=== PATIENT | female | born 1985 ===

== ENCOUNTER 2016-09-19 13:44 | Emergency (ER) | payer OTHER ==
[2016-09-19 13:44] VITALS: BMI 26.0
[2016-09-19 13:51] VITALS: BP 134/80; PULSE 60; RESP 18; TEMP 97; O2SAT 90
[2016-09-19 15:30] LABS: BASO # 0.1 K/uL (0.0-0.2); EOS # 0.1 K/uL (0.0-0.7); EOS % 1.2 % (0.0-4.0); LYMPH # 2.5 K/uL (1.0-4.3); LYMPH % 33.6 % (20.0-40.0); MEAN CELL VOLUME 91.4 fl (81.0-99.0); MEAN CORPUSCULAR HEMOGLOBIN 30.6 pg (27.0-31.0); MEAN CORPUSCULAR HGB CONC 33.5 g/dL (33.0-37.0); MONO # 0.6 K/uL (0.0-0.8); NEUT # 4.2 K/uL (1.8-7.0); NEUT % 56.2 % (50.0-75.0); NRBC % 0.2 % (0.0-0.0); RBC 4.58 Mil/uL (3.80-5.20); RED CELL DISTRIBUTION WIDTH 13.9 % (11.5-14.5); WHITE BLOOD COUNT 7.5 K/uL (4.8-10.8)
--- NOTE | 2016-09-19 15:33 | ED PDOC ---
HPI: Abdomen Time Seen by Provider: 09/19/16 15:23 Chief Complaint (Nursing): Abdominal Pain History Per: Patient History/Exam Limitations: no limitations Onset/Duration Of Symptoms: Days (3) Outside of [place] travel?: No Current Symptoms Are (Timing): Still Present Pain Scale Rating Of: 7 Location Of Pain/Discomfort: RUQ (radiates to midepigastrium) Quality Of Discomfort: "Pain". denies: Gas Associated Symptoms: Vomiting. denies: Fever, Chills, Diarrhea, Back Pain, Constipation, Urinary Symptoms Exacerbating Factors: None Alleviating Factors: None Last Bowel Movement: Yesterday Additional History Per: Patient Additional Complaint(s): 31 year old female with no PMH presents with complains of RUQ pain x 3 days, and vomiting x 1 this AM. She endorses pain is 7/10 in severity and is constant. She had bowl of cereal this AM which she vomited. She denies fevers, chills, night sweats, dysuria, hematuria. Patient admits to eating greasy meal yesterday. She is a social drinker, denies EtOH use this past weekend. LMP: 09/11, possible BTL. in 2016, patient unsure of surgery. PMD: none, OBGYN: Dr. Gill Meds: none Allergies: nkda social hx: denies tobacco/illicit drugs. social drinker Surgical hx csection: ?BTL Past Medical History Vital Signs: Last Vital Signs Temp 97 F L 09/19/16 13:48 Pulse 60 09/19/16 13:48 Resp 18 09/19/16 13:48 BP 134/80 09/19/16 13:48 Pulse Ox 90 L 09/19/16 20:48 - Medical History PMH: Asthma - Family History Family History: States: Unknown Family Hx - Immunization History Hx Influenza Vaccination: No Hx Pneumococcal Vaccination: No - Home Medications Home Medications: Ambulatory Orders Medication Instructions Recorded Polyethylene Glycol 3350 [Miralax] 17 gm PO DAILY #7 packet 01/25/15 Cyclobenzaprine [Flexeril] 5 mg PO TID #6 tab 03/29/16 Ibuprofen [Motrin] 600 mg PO TID PRN #30 tab 03/29/16 - Allergies Allergies/Adverse Reactions: Allergies Allergy/AdvReac Type Severity Reaction Status Date / Time No Known Allergies Allergy Verified 01/06/15 17:40 Physical Exam - Reviewed Vital Signs Reviewed: Yes (saturation 98% on RA) - Physical Exam Appears: Positive for: Uncomfortable Eye Exam: Positive for: Normal appearance, EOMI, PERRL Cardiovascular/Chest: Positive for: Regular Rate, Rhythm. Negative for: Bradycardia, Tachycardia Gastrointestinal/Abdominal: Positive for: Soft, Tenderness (mild ruq tenderness) . 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 Negative for: Motor/Sensory Deficits - Laboratory Results Result Diagrams: 09/19/16 15:25 09/19/16 15:25 Urine POC: Negative - ECG O2 Sat by Pulse Oximetry: 90 - Progress ED Course And Treament: abdominal pain in RUQ, likely secondary to gallbladder vs pancreatic pathology. * zofran * bentyl * trial of po fluids + omnipaque * if unable to tolerate, will get CT abd * upreg: negative case d/w Dr. Vallejo. pt still complaining of pain, will do ct abd/pelvis pt unable to tolerate PO contrast CT: unremarkable except for :FINDINGS: Lower thorax: Heart size is normal. Lung bases are clear ABDOMEN: Liver: There is fatty infiltration of the liver. Gallbladder and bile ducts: unremarkable Pancreas: unremarkable Spleen: unremarkable Adrenals: unremarkable Kidneys and ureters: unremarkable Stomach and bowel: Stomach is almost empty. Rotation is normal. There is air and fluid throughout the small bowel. There is no obstruction. Terminal ileum is unremarkable. Appendix is unremarkable. There is moderate stool in the colon. Appendix: See stomach and bowel PELVIS: Bladder: unremarkable Reproductive: Uterus and adnexal structures are unremarkable. ABDOMEN and PELVIS: Intraperitoneal space: There is no significant fluid. There is no free air. Bones/joints: There are no acute osseous abnormalities Soft tissues: unremarkable Vasculature: Vascular structures are unremarkable. Lymph nodes: There is no pathologic adenopathy. IMPRESSION: Fatty liver, no acute solid visceral or bowel abnormality Patient feels better, no longer having pain, nausea or vomiting. Tolerated PO liquids. Has appetite, prefers to eat at home. Patient VS, labs and imaging reviewed with Dr. Gray. Disposition - Clinical Impression Clinical Impression: RUQ pain, Biliary colic - Patient ED Disposition Is Patient to be Admitted: No - Disposition Referrals: [facility] [Outside] Disposition: Routine/Home Disposition Time: 20:40 Condition: GOOD Additional Instructions: Patient to follow up with PMD within 1 week. [place] diet for next few days. ER precautions given to patient. Forms: [email or web address] Connect (Hebrew), [facility] ED School/Work Excuse Print Language: JAPANESE
[2016-09-19 15:40] LABS: ALBUMIN 3.9 g/dL (3.5-5.0)
[2016-09-19 15:43] LABS: GFR AFRICAN-AMERICAN > 60; GFR NON-AFRICAN AMERICAN > 60
[2016-09-19 15:44] LABS: ALB/GLOB RATIO 1.1 (1.0-2.1); AST/SGOT 26 U/L (14-36); BLOOD UREA NITROGEN 6 mg/dl (7-17); CALCIUM 9.3 mg/dL (8.4-10.2); LIPASE 42 U/L (23-300)
[2016-09-19 15:51] LABS: ALT/SGPT 33 U/L (9-52)
[2016-09-19] MEDS ORDERED: Iohexol 240 (50 ml) PO ONE (16:24)
[2016-09-19] MEDS ORDERED: Iohexol 240 (50 ml) ONE (16:36)
[2016-09-19] MEDS ORDERED: Iohexol 300 100 ML IJ ONE (19:38)
[2016-09-19] MEDS ORDERED: Sodium Chloride 0.9% 50 ML IV ONE (19:38)
--- NOTE | 2016-09-19 20:24 | CT ---
EXAM: CT Abdomen and Pelvis With Intravenous Contrast CLINICAL HISTORY: 31 years old, female; Pain; Abdominal pain; Localized; Right upper quadrant (ruq); Prior surgery; Surgery date: 6+ months; Surgery type: 1 ; Additional info: Ruq pain TECHNIQUE: Axial computed tomography images of the abdomen and pelvis with intravenous contrast. This CT exam was performed using one or more of the following dose reduction techniques: automated exposure control, adjustment of the mA and/or kV according to patient size, and/or use of iterative reconstruction technique. Coronal and sagittal reformatted images were created and reviewed. CONTRAST: 90 mL of [id number] administered intravenously. EXAM DATE/TIME: 09/19/2016 4:51 PM COMPARISON: There are no prior studies for comparison. FINDINGS: Lower thorax: Heart size is normal. Lung bases are clear ABDOMEN: Liver: There is fatty infiltration of the liver. Gallbladder and bile ducts: unremarkable Pancreas: unremarkable Spleen: unremarkable Adrenals: unremarkable Kidneys and ureters: unremarkable Stomach and bowel: Stomach is almost empty. Rotation is normal. There is air and fluid throughout the small bowel. There is no obstruction. Terminal ileum is unremarkable. Appendix is unremarkable. There is moderate stool in the colon. Appendix: See stomach and bowel PELVIS: Bladder: unremarkable Reproductive: Uterus and adnexal structures are unremarkable. ABDOMEN and PELVIS: Intraperitoneal space: There is no significant fluid. There is no free air. Bones/joints: There are no acute osseous abnormalities Soft tissues: unremarkable Vasculature: Vascular structures are unremarkable. Lymph nodes: There is no pathologic adenopathy. IMPRESSION: Fatty liver, no acute solid visceral or bowel abnormality
== END 2016-09-19 21:00 | disposition home or self-care (01) ==
LOC: H.ER 13:44
DX: K80.50 Calculus of bile duct without cholangitis or cholecystitis without obstruction (principal); J45.909 Unspecified asthma, uncomplicated

== ENCOUNTER 2016-10-02 13:26 | Emergency (ER) | payer OTHER ==
[2016-10-02 13:26] VITALS: BMI 26.0
[2016-10-02 13:35] VITALS: O2SAT 100
[2016-10-02] MEDS ORDERED: Sodium Chloride 0.9% 1,000 ML IV STA (13:42)
--- NOTE | 2016-10-02 13:51 | ED PDOC ---
HPI: Abdomen Time Seen by Provider: 10/02/16 13:42 Chief Complaint (Nursing): Abdominal Pain Chief Complaint (Provider): abd pain History Per: Patient History/Exam Limitations: no limitations Onset/Duration Of Symptoms: Days (2) Outside of [place] travel?: No Current Symptoms Are (Timing): Still Present Severity: Moderate Location Of Pain/Discomfort: RUQ (band like radiates to back) Quality Of Discomfort: Sharp, Stabbing Associated Symptoms: Nausea, Vomiting (x2), Back Pain. denies: Fever, Chills, Diarrhea, Loss Of Appetite, Chest Pain, Constipation, Urinary Symptoms Abnormal Vaginal Bleeding: No Past Medical History Reviewed: Historical Data, Nursing Documentation, Vital Signs Vital Signs: Last Vital Signs Temp 98.0 F 10/02/16 13:33 Pulse 67 10/02/16 13:33 Resp 18 10/02/16 13:33 BP 121/71 10/02/16 13:33 Pulse Ox 100 10/02/16 13:54 - Medical History PMH: Asthma - Family History Family History: States: Unknown Family Hx - Immunization History Hx Influenza Vaccination: No Hx Pneumococcal Vaccination: No - Home Medications Home Medications: Ambulatory Orders Medication Instructions Recorded Famotidine [Pepcid] 20 mg PO BID #16 tab 10/02/16 - Allergies Allergies/Adverse Reactions: Allergies Allergy/AdvReac Type Severity Reaction Status Date / Time No Known Allergies Allergy Verified 01/06/15 17:40 Review of Systems ROS Statement: Except As Marked, All Systems Reviewed And Found Negative Constitutional: Negative for: Fever, Chills Gastrointestinal: Positive for: Nausea, Vomiting, Abdominal Pain. Negative for : Diarrhea Genitourinary Female: Negative for: Frequency Physical Exam - Reviewed Nursing Documentation Reviewed: Yes Vital Signs Reviewed: Yes - Physical Exam Appears: Positive for: Non-toxic, No Acute Distress, Uncomfortable Head Exam: Positive for: ATRAUMATIC, NORMAL INSPECTION, NORMOCEPHALIC Skin: Positive for: Normal Color, Warm, DRY Cardiovascular/Chest: Positive for: Regular Rate, Rhythm Respiratory: Positive for: CNT, Normal Breath Sounds Gastrointestinal/Abdominal: Positive for: Bowel Sounds, Tenderness (RUQ pain (+ ) murphys sign) Neurologic/Psych: Positive for: Alert, Oriented - Laboratory Results Result Diagrams: 10/02/16 13:51 10/02/16 13:51 Urine POC: Negative - ECG O2 Sat by Pulse Oximetry: 100 - Progress ED Course And Treament: r/o billary disease US RUQ cbc/cmp/lipase I fluids zofran torodol Medical Decision Making Medical Decision Making: labs show only mild elevation of liver enzymes and no lipase elevation. US shows no billary disease. pt most likely with gastritis advised to f.u with GI and given pepcid. Disposition - Clinical Impression Clinical Impression: Gastritis, Abdominal discomfort - Patient ED Disposition Is Patient to be Admitted: No Counseled Patient/Family Regarding: Studies Performed, Diagnosis, Need For Followup, Rx Given - Disposition Referrals: [facility] [Outside] [facility] [place] [Outside] Disposition: Routine/Home Disposition Time: 15:06 Condition: IMPROVED Prescriptions: Famotidine [Pepcid] 20 mg PO BID #16 tab Instructions: Gastritis (ED) Forms: [email or web address] Connect (Indonesian)
[2016-10-02 13:58] LABS: BASO # 0.1 K/uL (0.0-0.2); BASO % 0.7 % (0.0-2.0); EOS # 0.1 K/uL (0.0-0.7); EOS % 0.7 % (0.0-4.0); HEMOGLOBIN 13.5 g/dL (12.0-16.0); LYMPH # 2.5 K/uL (1.0-4.3); LYMPH % 31.8 % (20.0-40.0); MEAN CELL VOLUME 91.3 fl (81.0-99.0); MEAN CORPUSCULAR HEMOGLOBIN 30.7 pg (27.0-31.0); MEAN CORPUSCULAR HGB CONC 33.7 g/dL (33.0-37.0); MEAN PLATELET VOLUME 8.1 fl (7.2-11.7); MONO # 0.7 K/uL (0.0-0.8); MONO % 9.2 % (0.0-10.0); NEUT # 4.5 K/uL (1.8-7.0); NEUT % 57.6 % (50.0-75.0); NRBC % 0.2 % (0.0-0.0); RBC 4.38 Mil/uL (3.80-5.20); WHITE BLOOD COUNT 7.9 K/uL (4.8-10.8)
[2016-10-02 14:12] LABS: ALB/GLOB RATIO 1.1 (1.0-2.1); ALBUMIN 3.9 g/dL (3.5-5.0); ALT/SGPT 53 U/L (9-52); AST/SGOT 48 U/L (14-36); BLOOD UREA NITROGEN 10 mg/dl (7-17); CALCIUM 8.9 mg/dL (8.4-10.2); GFR AFRICAN-AMERICAN > 60; GFR NON-AFRICAN AMERICAN > 60; LIPASE 48 U/L (23-300)
--- NOTE | 2016-10-02 15:01 | US ---
HISTORY: RUQ pain COMPARISON: To wound 2017 TECHNIQUE: Sonographic evaluation of the right upper quadrant of the abdomen. FINDINGS: LIVER: Measures 18.4 cm in length. Patent portal vein. Portal venous flow: Hepatopetal. Unremarkeable echogenicity of the liver parenchyma. No mass. No intrahepatic bile duct dilatation. GALLBLADDER: Unremarkable. No gallstones. COMMON BILE DUCT: Measures 1.6 mm. No stones. No dilatation. PANCREAS: Unremarkable as visualized. No mass. No ductal dilatation. RIGHT KIDNEY: Measures 3.7 x 11.3 cm in length. Normal echogenicity. No calculus, mass, or hydronephrosis. AORTA: No aneurysmal dilatation. IVC: Unremarkable. OTHER FINDINGS: None . IMPRESSION: No significant or acute findings to account for/ related to the clinical presentation. No significant interval change compared to the prior examination(s).
[2016-10-02 15:16] VITALS: BP 115/72; PULSE 75; RESP 16; TEMP 98.2
== END 2016-10-02 15:18 | disposition home or self-care (01) ==
LOC: H.ER 13:26
DX: K29.70 Gastritis, unspecified, without bleeding (principal)